=== PATIENT | male | born 1960 | race African-American/Black ===

== ENCOUNTER → 2018-12-01 | Outpatient (CLI) | payer OTHER ==
[2018-12-01 11:42] LABS: Basophils # (auto) 0.1 uL; Eosinophils # (auto) 0.2 uL; Monocytes # (auto) 0.4 uL
[2018-12-01 11:45] LABS: Basophils % (auto) 1.2 % (0.0-2.0); Eosinophils % (auto) 4.3 % (0.0-7.0); Hemoglobin 15.2 g/dL (13.5-17.5); Lymphocytes # (auto) 1.7 uL; Lymphocytes % (auto) 34.2 % (10.0-50.0); Mean Corpuscular Hemoglobin 27.1 pg (28.0-32.0); Monocytes % (auto) 8.7 % (0.0-12.0); Neutrophils # (auto) 2.6 uL; Neutrophils % (auto) 51.6 % (37.0-80.0); Nucleated Red Blood Cells % 0.1 %; Platelet Count (auto) 353 10^3/uL (140-450); Red Blood Cells 5.61 10^6/uL (4.5-5.90); Red Cell Distribution Width 14.9 % (11.8-14.3)
[2018-12-01 13:22] LABS: Chloride 102 mmol/L (98-107); Potassium 3.6 mmol/L (3.5-5.1); Sodium 138 mmol/L (136-145)
[2018-12-01 13:31] LABS: Alanine Aminotransferase 27 U/L (16-61); Albumin 3.9 g/dL (3.4-5.0); Alkaline Phosphatase 90 U/L (45-117); Anion Gap 5 (5-15); Aspartate Aminotransferase 15 U/L (15-37); BUN/Creatinine Ratio 14.5; Bilirubin, Total 0.6 mg/dL (0.2-1.0); Blood Urea Nitrogen 17 mg/dL (7-18); Calcium 8.9 mg/dL (8.5-10.1); Carbon Dioxide 31 mmol/L (21-32); Cholesterol 155 mg/dL (< 200); GFR African American > 60 mL/min; GFR Non-African American > 60 mL/min; Glucose 108 mg/dL (74-106); HDL Cholesterol 34 mg/dL (40-59); LDL Cholesterol 100 mg/dL (< 100); Total Protein 8.4 g/dL (6.4-8.2); Triglycerides 176 mg/dL (< 150)
== END | disposition home or self-care (01) ==
LOC: LAB 10:58
PROVIDERS: ATTEND Internal Medicine
DX: Z12.11 Encounter for screening for malignant neoplasm of colon (principal); I10 Essential (primary) hypertension; Z66 Do not resuscitate
CPT/HCPCS: 36415; 80053; 80061; 82306; 84402; 84403; 84443; 85025

== ENCOUNTER → 2019-03-16 | Outpatient (CLI) | payer OTHER ==
[~2019-03-16] MED LIST: AMLO10TA12 PO; HYDR12.56 PO; LEVO500T21 PO; METR500T PO
== END | disposition home or self-care (01) ==
LOC: LAB 10:00
PROVIDERS: ATTEND Internal Medicine
DX: Z12.11 Encounter for screening for malignant neoplasm of colon (principal); R73.01 Impaired fasting glucose
CPT/HCPCS: 36415; 83036

== ENCOUNTER 2019-05-25 06:56 | Day surgery (SDC) | payer OTHER ==
[2019-05-22 10:28] LABS: Basophils # (auto) 0.1 uL; Basophils % (auto) 1.5 % (0.0-2.0); Eosinophils # (auto) 0.2 uL; Eosinophils % (auto) 5.9 % (0.0-7.0); Hematocrit 43.9 % (41.0-53.0); Hemoglobin 14.3 g/dL (13.5-17.5); Lymphocytes # (auto) 1.8 uL; Lymphocytes % (auto) 43.4 % (10.0-50.0); Mean Corpuscular Hemoglobin 27.3 pg (28.0-32.0); Mean Corpuscular Hgb Conc. 32.6 g/dL (32.0-36.0); Mean Corpuscular Volume 83.5 fL (80.0-100.0); Monocytes # (auto) 0.4 uL; Neutrophils # (auto) 1.6 uL; Neutrophils % (auto) 40.2 % (37.0-80.0); Nucleated Red Blood Cells % 0.1 %; Platelet Count (auto) 251 10^3/uL (140-450); Red Blood Cells 5.26 10^6/uL (4.5-5.90); Red Cell Distribution Width 14.6 % (11.8-14.3); White Blood Cell 4.1 10^3/uL (4.4-10.8)
[2019-05-22 11:01] LABS: INR 0.95 (0.9-1.15); Partial Thromboplastin Time 27.3 sec (23.64-32.05)
[2019-05-22 11:08] LABS: Albumin 3.8 g/dL (3.4-5.0); Potassium 3.6 mmol/L (3.5-5.1)
[2019-05-22 11:14] LABS: BUN/Creatinine Ratio 12.7; Bilirubin, Total 0.7 mg/dL (0.2-1.0); Total Protein 7.9 g/dL (6.4-8.2)
[2019-05-22 13:05] LABS: Urine Bacteria NONE SEEN /hpf (None Seen); Urine Blood Negative /uL (Negative); Urine Specific Gravity 1.019 (1.001-1.035); Urine WBC 2 /hpf (0 - 3)
[~2019-05-25] VITALS: Ht 175.3 cm; Wt 136.1 kg
[~2019-05-25 06:56] MED LIST changes: -AMLO10TA12 PO; +AMLO10TA13 PO; -LEVO500T21 PO; -METR500T PO
[2019-05-25] MEDS ORDERED: ROCURONIUM 10MG/ML 10ML VIAL IV ONE (07:51)
[2019-05-25] MEDS ORDERED: PROPOFOL 10 MG/ML 20 ML IV ONE ×2 (07:51→09:50)
[2019-05-25] MEDS ORDERED: MIDAZOLAM HCL 1MG/1ML-2 ML VIAL ONE (07:51)
[2019-05-25] MEDS ORDERED: SODIUM CHLORIDE LOCK 10 ML ONE (07:51)
[2019-05-25] MEDS ORDERED: fentaNYL CITRATE 100 MCG/2 ML VL ONE (07:51)
[2019-05-25] MEDS ORDERED: ONDANSETRON HCL 4 MG/2 ML VIAL ONE (07:51)
[2019-05-25] MEDS ORDERED: MEPERIDINE HCL (25 MG/ML) 1ML VIAL ONE ×2 (07:51→08:13)
[2019-05-25] MEDS ORDERED: SODIUM CHLORIDE LOCK 20 ML ONE (07:52)
[2019-05-25] MEDS ORDERED: LIDOCAINE 2% (LOCAL ANESTH.) PF 5ml SDV ONE (07:55)
[2019-05-25] MEDS ORDERED: LIDOCAINE HCL 2% TOP JELLY 5ML TOP ONE (07:55)
[2019-05-25] MEDS ORDERED: KETOROLAC TROMETH 30 MG/ML 1ML VIAL ONE (08:05)
[2019-05-25] MEDS ORDERED: CIPROFLOXACIN 400MG/200ML 200 ML IV ONE (08:22)
[2019-05-25] MEDS ORDERED: LIDOCAINE W/ EPINEPHRINE 1 % INJ 30ML ONE (08:39)
[2019-05-25] MEDS ORDERED: ceFAZolin 1GM VL ONE (08:39)
[2019-05-25] MEDS ORDERED: HYDROmorphone HCL 2 MG/ML VL IV PRN (08:45)
[2019-05-25] MEDS ORDERED: METOCLOPRAMIDE HCL 5MG/ml INJ 2ml VIAL IV ONE (08:45)
[2019-05-25] MEDS ORDERED: KETOROLAC TROMETH 15 mg/ml 1ML VL IV ONE (08:45)
[2019-05-25 11:40] VITALS: BP 107/69
[2019-05-25 12:54] VITALS: BP 101/86
== END 2019-05-25 13:07 | disposition home or self-care (01) ==
LOC: SUR 06:56
PROVIDERS: ATTEND Urology
DX: N52.01 Erectile dysfunction due to arterial insufficiency (principal); I10 Essential (primary) hypertension; E66.9 Obesity, unspecified; G47.33 Obstructive sleep apnea (adult) (pediatric); Z79.899 Other long term (current) drug therapy; Z98.890 Other specified postprocedural states; Z87.891 Personal history of nicotine dependence; Z68.41 Body mass index [BMI] 40.0-44.9, adult
CPT/HCPCS: 36415; 54405; 80053; 81001; 85025; 85610; 85730; 87086; 93005; C1813; J0690; J0744; J1885; J2001; J2175; J2250; J2405; J2704; J3010

== ENCOUNTER 2019-06-10 16:13 | Inpatient (IN) | payer OTHER ==
[~2019-06-10] VITALS: Ht 175.3 cm; Wt 135.7 kg
[2019-06-10 16:40] LABS: Basophils # (auto) 0.1 uL; Basophils % (auto) 1.2 % (0.0-2.0); Eosinophils # (auto) 0.2 uL; Eosinophils % (auto) 4.1 % (0.0-7.0); Hematocrit 40.9 % (41.0-53.0); Hemoglobin 13.4 g/dL (13.5-17.5); Lymphocytes # (auto) 1.9 uL; Lymphocytes % (auto) 32.2 % (10.0-50.0); Mean Corpuscular Hemoglobin 27.1 pg (28.0-32.0); Mean Corpuscular Hgb Conc. 32.7 g/dL (32.0-36.0); Mean Corpuscular Volume 82.9 fL (80.0-100.0); Monocytes # (auto) 0.5 uL; Monocytes % (auto) 8.2 % (0.0-12.0); Neutrophils # (auto) 3.3 uL; Neutrophils % (auto) 54.3 % (37.0-80.0); Platelet Count (auto) 340 10^3/uL (140-450); Red Blood Cells 4.94 10^6/uL (4.5-5.90); Red Cell Distribution Width 14.4 % (11.8-14.3)
[2019-06-10 17:01] LABS: Albumin 3.9 g/dL (3.4-5.0); BUN/Creatinine Ratio 17.5; Calcium 8.9 mg/dL (8.5-10.1); Potassium 3.6 mmol/L (3.5-5.1)
[2019-06-10 17:04] LABS: Bilirubin, Total 0.4 mg/dL (0.2-1.0); Total Protein 7.6 g/dL (6.4-8.2)
[2019-06-10] MEDS ORDERED: CIPROFLOXACIN 400MG/200ML 200 ML IV ONE (20:00)
[2019-06-10] MEDS ORDERED: VANCOMYCIN PER PHARMACY 0 MG IV SCH (20:00)
[2019-06-10] MEDS ORDERED: NITROGLYCERIN 0.4 MG SL TAB SL PRN (20:00)
[2019-06-10] MEDS ORDERED: MORPHINE SULF INJ 2 MG/ML SYRINGE 1ML IV PRN (20:00)
[2019-06-10] MEDS ORDERED: metroNIDAZOLE 500MG/100ML 100 ML IV ONE (21:00)
[2019-06-10 21:20] LABS: INR < 0.93 (0.9-1.15)
[2019-06-10] MEDS ORDERED: VANCOMYCIN 1GM/250ML 250 ML IV SCH (22:00)
[2019-06-11 01:07] LABS: Urine WBC None Seen /hpf (0 - 3)
[2019-06-11 01:20] LABS: Urine Bacteria NONE SEEN /hpf (None Seen); Urine Blood Negative /uL (Negative); Urine Specific Gravity 1.018 (1.001-1.035)
[2019-06-11 04:00] VITALS: BP 121/77
[2019-06-11 04:18] VITALS: BP 121/77
--- NOTE | 2019-06-11 04:41 | NUR ---
MS admit from [facility] admitted to tele/MS after SBAR received. Patient oriented to Connie Anne RN primary RN, unit, room, bed, and unit policies regarding patient care and visiting hours. Patient weighed by bedscale and encouraged to call if they need something. All questions and concerns addressed, patient verbalized understanding. Note:
--- NOTE | 2019-06-11 04:42 | NUR ---
Patient aware of the procedure in the morning. NPO after MN instructed, patient verbalized understanding, will continue to monitor
--- NOTE | 2019-06-11 07:15 | NUR ---
Patient brought down to Pre-Op, no distress at time of transfer. Endorsed to [employer] [employer]
[2019-06-11] MEDS ORDERED: LIDOCAINE W/ EPINEPHRINE 1 % INJ 30ML ONE (07:26)
[2019-06-11] MEDS ORDERED: ceFAZolin 1GM/50ML 50 ML IV ONE (07:27)
[2019-06-11] MEDS ORDERED: ceFAZolin 1GM VL ONE (07:31)
[2019-06-11] MEDS ORDERED: SUCCINYLCHOLINE CHLORIDE 20 MG/ML 10ML VIAL IV ONE (07:46)
[2019-06-11] MEDS ORDERED: ROCURONIUM 10MG/ML 10ML VIAL IV ONE (07:46)
[2019-06-11] MEDS ORDERED: PROPOFOL 10 MG/ML 20 ML IV ONE (07:50)
[2019-06-11] MEDS ORDERED: DexAMETHasone SOD PHOS 10MG/1ML VIAL INJ ONE (07:50)
[2019-06-11] MEDS ORDERED: ONDANSETRON HCL 4 MG/2 ML VIAL ONE (07:50)
[2019-06-11] MEDS ORDERED: fentaNYL CITRATE 100 MCG/2 ML VL ONE (07:53)
[2019-06-11] MEDS ORDERED: MIDAZOLAM HCL 1MG/1ML-2 ML VIAL ONE (07:53)
[2019-06-11] MEDS ORDERED: HYDROmorphone HCL 2 MG/ML VL ONE (09:06)
[2019-06-11] MEDS: HYDROmorphone HCL 2 MG/ML VL IV PRN ×3 (09:08→10:32)
[2019-06-11] MEDS ORDERED: HYDROmorphone HCL 2 MG/ML VL IV PRN (09:15)
[2019-06-11] MEDS ORDERED: HYDROcodone-ACET 10/325MG TAB PO PRN (11:30)
[2019-06-11] MEDS ORDERED: HYDROmorphone HCL 2 MG/ML VL IV ONE (11:30)
[2019-06-11 13:00] VITALS: BP 113/73
[2019-06-11] MEDS: VANCOMYCIN 1GM/250ML 250 ML IV SCH ×2 (13:25→20:18)
[2019-06-11] MEDS: ceFAZolin 1GM 2 GM in D5W 5% 100 ML IV SCH ×2 (15:03→22:06)
[2019-06-11 17:00] VITALS: BP 100/61
--- NOTE | 2019-06-11 19:30 | NUR ---
Opening Shift Note Assumed care of patient, awake and alert. No S/S of distress/SOB or pain. Dressing to sacral wound dry and intact, BEN draining to serosanguinous output. Instructed on POC and to call for assist PRN, patient verbalized understanding, call light within reach, will continue to monitor for changes Q1hr and PRN.
[2019-06-11] MEDS: DOCUSATE SOD 100 MG CAP PO SCH (21:26)
[2019-06-11 22:00] VITALS: BP 130/77
[2019-06-11 22:05] VITALS: BP 100/61
--- NOTE | 2019-06-12 02:59 | NUR ---
Insulator Apprentice unable to draw blood for [place]. Will try to do it later
[2019-06-12] MEDS: VANCOMYCIN 1GM/250ML 250 ML IV SCH ×2 (05:23→12:00)
[2019-06-12 05:49] VITALS: BP 121/85
[2019-06-12] MEDS: ceFAZolin 1GM 2 GM in D5W 5% 100 ML IV SCH (06:45)
--- NOTE | 2019-06-12 06:45 | NUR ---
Drained 15ml of serosanguinous output from BEN
[2019-06-12 08:00] VITALS: BP 129/84
[2019-06-12] MEDS: DOCUSATE SOD 100 MG CAP PO SCH (10:11)
--- NOTE | 2019-06-12 12:37 | NUR ---
Discharge instructions given as ordered. Encourage to follow up with PMD as instructed. All questions and concerns addressed. Patient verbalized understanding. Medication reconciliation form completed and copy given to patient. Patient taken to vehicle via wheelchair with all personal belongings, accompanied by staff and family member. No distress noted at time of departure.
== END 2019-06-12 12:57 | disposition home or self-care (01) | DRG 920 ==
LOC: ER 16:13 → OVERFLOW 16:14 → CENTRAL 06-11 03:35
PROVIDERS: ADMIT Urology; ATTEND Urology
PROC: 0VQ50ZZ Repair Scrotum, Open Approach (ICD-10-PCS; 2019-06-11)
PROC: 0VJ80ZZ Inspection of Scrotum and Tunica Vaginalis, Open Approach (ICD-10-PCS; principal; 2019-06-11 07:44)
DX: T81.30XA Disruption of wound, unspecified, initial encounter (principal); L03.90 Cellulitis, unspecified; I10 Essential (primary) hypertension; Y83.8 Other surgical procedures as the cause of abnormal reaction of the patient, or of later complication, without mention of misadventure at the time of the procedure; Y92.89 Other specified places as the place of occurrence of the external cause
CPT/HCPCS: 36415; 71045; 80053; 80202; 81001; 82565; 85025; 85610; 87070; 87075; 87205; 94660; 96365; 96367; G0378; J0330; J0690; J1100; J2250; J2405; J2704; J3490; J7060

== ENCOUNTER → 2019-07-21 | Outpatient (CLI) | payer OTHER ==
[2019-07-21 13:06] LABS: Basophils # (auto) 0.1 uL; Eosinophils # (auto) 0.2 uL; Hemoglobin 13.9 g/dL (13.5-17.5); Monocytes # (auto) 0.5 uL; Nucleated Red Blood Cells % 0.1 %; White Blood Cell 4.5 10^3/uL (4.4-10.8)
[2019-07-21 13:08] LABS: Basophils % (auto) 1.1 % (0.0-2.0); Eosinophils % (auto) 4.8 % (0.0-7.0); Hematocrit 42.6 % (41.0-53.0); Lymphocytes # (auto) 1.7 uL; Lymphocytes % (auto) 38.1 % (10.0-50.0); Mean Corpuscular Hemoglobin 27.1 pg (28.0-32.0); Mean Corpuscular Hgb Conc. 32.6 g/dL (32.0-36.0); Mean Corpuscular Volume 82.9 fL (80.0-100.0); Monocytes % (auto) 10.5 % (0.0-12.0); Neutrophils % (auto) 45.5 % (37.0-80.0); Platelet Count (auto) 294 10^3/uL (140-450); Red Blood Cells 5.14 10^6/uL (4.5-5.90); Red Cell Distribution Width 14.8 % (11.8-14.3)
[2019-07-21 13:26] LABS: INR < 0.93 (0.9-1.15); Partial Thromboplastin Time 27.2 sec (23.64-32.05)
[2019-07-21 14:04] LABS: Potassium 3.6 mmol/L (3.5-5.1)
[2019-07-21 14:08] LABS: BUN/Creatinine Ratio 15.7
== END | disposition home or self-care (01) ==
LOC: LAB 12:50
DX: Z01.818 Encounter for other preprocedural examination (principal); I10 Essential (primary) hypertension
CPT/HCPCS: 36415; 80048; 85025; 85610; 85730; 86703; 86803

== ENCOUNTER → 2021-04-27 | Outpatient (CLI) | payer BC ==
[~2021-04-27] MED LIST changes: +AMLO-496 PO; -AMLO10TA13 PO
== END | disposition home or self-care (01) ==
LOC: XYW 09:16
PROVIDERS: ATTEND Internal Medicine
DX: Z01.810 Encounter for preprocedural cardiovascular examination (principal); I10 Essential (primary) hypertension
CPT/HCPCS: 93306

== ENCOUNTER → 2021-05-02 | Outpatient (CLI) | payer BC ==
[~2021-05-02] VITALS: Ht 175.3 cm; Wt 146.1 kg
[~2021-05-02] MED LIST changes: +ADENOSINE 123 MG in GIVE UN-DILUTED 0 ML IV STA
[2021-05-02 09:22] VITALS: BP 129/88
== END | disposition home or self-care (01) ==
LOC: XY 07:50
PROVIDERS: ATTEND Internal Medicine
DX: Z01.810 Encounter for preprocedural cardiovascular examination (principal); I10 Essential (primary) hypertension
CPT/HCPCS: 78452; 93017; A9500; J0153